=== PATIENT | male | born 1980 | race African-American/Black ===

== ENCOUNTER 2020-05-10 10:41 | Inpatient (IN) ==
[2020-05-10 11:54] LABS: Basophils % 0.2 % (0.0-0.8); Eosinophils % 0.1 % (0.00-10.9); Hematocrit 47.1 VOL% (42.0-52.0); Hemoglobin 15.9 GM/DL (14.0-18.0); Immature Granulocytes % 0.5 %; Immature Granulocytes Absolute 0.07 #; Lymphocytes # 1.4 10*3/uL (1.4-4.0); Lymphocytes % 10.3 % (21.2-54.2); Mean Corpuscular HGB Conc 33.8 GM/DL (32-36); Mean Corpuscular Volume 82.8 FL (87-102); Mean Platelet Volume 11.1 FL (9.6-12.0); Monocytes % 9.3 % (1.7-12.7); Neutrophils % 79.6 % (38.7-73.9); Platelet Count 211 T/CUMM (130-400); Red Blood Count 5.69 MC/CUMM (3.8-5.5); Red Cell Distribution Width 12.3 % (9.3-17.3); White Blood Count 13.7 T/CUMM (4-12)
[2020-05-10 12:14] LABS: Anisocytosis Slight; Atypical Lymphocytes Few; Band Neutrophils 1 % (0-10); Lymphocytes 10 % (20-55); Nucleated Red Blood Cells 1 (0-5); Platelet Estimate Normal; Segmented Neutrophils 78 % (50-85); Total Cells Counted 100
[2020-05-10 12:26] LABS: Calcium 9.4 MG/DL (8.5-10.1); Osmolality,Calculated 264.5 MOS/KG (273-304); Thyroid Stimulating Hormone 1.02 uIU/ml (0.358-3.74)
[2020-05-10] MEDS ORDERED: HEPARIN 5,000 UNIT/1 ML VIAL IV ONE ×2 (17:10→18:00)
[2020-05-10] MEDS ORDERED: ONDANSETRON 4 MG/2 ML VIAL IV STA (18:04)
[2020-05-10] MEDS ORDERED: MORPHINE 4 MG/1 ML VIAL IV STA (18:04)
[2020-05-10] MEDS ORDERED: VANCOMYCIN INJ 1,000 MG in SODIUM CHLORIDE 0.9% 250 ML IV ONE (20:21)
[2020-05-10] MEDS ORDERED: VANCOMYCIN 500 MG VIAL ONE (20:25)
[2020-05-10] MEDS ORDERED: MEPERIDINE 25 MG/1 ML VIAL IV PRN (20:40)
[2020-05-10] MEDS ORDERED: diphenhydrAMINE 50 MG/1 ML VIAL IV PRN (20:40)
[2020-05-10] MEDS ORDERED: ONDANSETRON 4 MG/2 ML VIAL IV PRN ×2 (20:40→22:01)
[2020-05-10] MEDS ORDERED: PROMETHAZINE INJ 25 MG in SODIUM CHLORIDE 0.9% 50 ML IV PRN (20:40)
[2020-05-10] MEDS ORDERED: BISACODYL 5 MG TABLET PO PRN (22:01)
[2020-05-10] MEDS ORDERED: KETOROLAC 10 MG TABLET PO PRN (22:01)
[2020-05-10] MEDS ORDERED: MIDAZOLAM 2 MG/2 ML VIAL ONE (22:26)
[2020-05-10] MEDS ORDERED: ONDANSETRON 4 MG/2 ML VIAL ONE (22:26)
[2020-05-10] MEDS ORDERED: fentaNYL 100 MCG/2 ML VIAL ONE (22:26)
[2020-05-10] MEDS ORDERED: DEXAMETHASONE 4 MG/1 ML VIAL ONE (22:26)
[2020-05-10] MEDS ORDERED: LIDOCAINE 2% 5 ML VIAL ONE (22:26)
[2020-05-10] MEDS ORDERED: propofoL 200 MG/20 ML VIAL IV ONE (22:26)
[2020-05-10] MEDS ORDERED: LACTATED RINGERS 2,000 ML IV ONE (22:27)
[2020-05-10] MEDS ORDERED: GLYCOPYRROLATE 0.4 MG/2 ML VIAL ONE (22:27)
[2020-05-10] MEDS ORDERED: SEVOFLURANE 1 UNIT/15 MINUTE INH ONE (22:27)
[2020-05-10] MEDS ORDERED: ROCURONIUM 100 MG/10 ML VIAL IV ONE (22:27)
[2020-05-10] MEDS ORDERED: NEOSTIGMINE 10 MG/10 ML VIAL ONE (22:27)
[2020-05-10] MEDS ORDERED: ESMOLOL 100 MG/10 ML VIAL IV ONE (22:27)
[2020-05-10] MEDS ORDERED: INFLUENZA VIRUS VACCINE 0.5 ML SYRINGE IM ONE (23:00)
[2020-05-11] MEDS: LACTATED RINGERS 1,000 ML IV SCH ×3 (03:04→13:43)
[2020-05-11 05:38] LABS: Basophils % 0.1 % (0.0-0.8); Hematocrit 41.6 VOL% (42.0-52.0); Immature Granulocytes % 0.5 %; Immature Granulocytes Absolute 0.08 #; Lymphocytes # 0.5 10*3/uL (1.4-4.0); Lymphocytes % 3.2 % (21.2-54.2); Mean Corpuscular HGB Conc 32.7 GM/DL (32-36); Mean Platelet Volume 11.8 FL (9.6-12.0); Monocytes % 5.8 % (1.7-12.7); Neutrophils % 90.4 % (38.7-73.9); Platelet Count 193 T/CUMM (130-400); Red Blood Count 4.95 MC/CUMM (3.8-5.5); Red Cell Distribution Width 12.4 % (9.3-17.3)
[2020-05-11 06:01] LABS: Calcium 9.1 MG/DL (8.5-10.1); Osmolality,Calculated 271.1 MOS/KG (273-304)
[2020-05-11 06:03] LABS: Hemoglobin 13.6 GM/DL (14.0-18.0)
[2020-05-11 06:08] LABS: Hypochromasia 1+; Lymphocytes 8 % (20-55); Microcytosis Slight; Ovalocytes Slight; Platelet Estimate Adequate; Segmented Neutrophils 89 % (50-85); Total Cells Counted 100
[2020-05-11] MEDS: CLOPIDOGREL 75 MG TABLET PO SCH (08:51)
[2020-05-11] MEDS: PANTOPRAZOLE 40 MG TABLET PO SCH (08:51)
[2020-05-11] MEDS: ASPIRIN EC 81 MG TABLET PO SCH (08:51)
[2020-05-11] MEDS ORDERED: ENOXAPARIN 40 MG/0.4 ML SYRINGE SUBCUT SCH (16:00)
[2020-05-12] MEDS: CLOPIDOGREL 75 MG TABLET PO SCH (09:31)
[2020-05-12] MEDS: PANTOPRAZOLE 40 MG TABLET PO SCH (09:31)
[2020-05-12] MEDS: ASPIRIN EC 81 MG TABLET PO SCH (09:31)
[2020-05-12] MEDS: LACTATED RINGERS 1,000 ML IV SCH ×2 (09:31→09:43)
[2020-05-12] MEDS: HEPARIN DRIP 25,000 UNITS/500 ML PREMIX IV SCH (14:29)
[2020-05-13] MEDS: HEPARIN DRIP 25,000 UNITS/500 ML PREMIX IV SCH (07:27)
[2020-05-13] MEDS: PANTOPRAZOLE 40 MG TABLET PO SCH (08:38)
[2020-05-13] MEDS: CLOPIDOGREL 75 MG TABLET PO SCH (08:39)
[2020-05-13] MEDS: ASPIRIN EC 81 MG TABLET PO SCH (08:40)
[2020-05-13 14:48] LABS: Barbiturates Screen,Urine Negative (Negative); Benzodiazepines Screen,Urine Negative (Negative); Cannabinoid Screen,Urine Negative (Negative); Opiate Screen,Urine Positive (Negative); Phencyclidine Screen,Urine Negative (Negative)
[2020-05-13] MEDS: LACTATED RINGERS 1,000 ML IV SCH ×3 (16:26→16:27)
[2020-05-14] MEDS: HEPARIN DRIP 25,000 UNITS/500 ML PREMIX IV SCH ×2 (00:17→16:00)
[2020-05-14] MEDS: LACTATED RINGERS 1,000 ML IV SCH ×3 (06:28→17:35)
[2020-05-14] MEDS: ASPIRIN EC 81 MG TABLET PO SCH (09:14)
[2020-05-14] MEDS: PANTOPRAZOLE 40 MG TABLET PO SCH (09:14)
[2020-05-14] MEDS: CLOPIDOGREL 75 MG TABLET PO SCH (09:14)
[2020-05-14] MEDS: WARFARIN 5 MG TABLET PO SCH (17:34)
[2020-05-15] MEDS: LACTATED RINGERS 1,000 ML IV SCH ×3 (03:14→18:12)
[2020-05-15] MEDS ORDERED: LIDOCAINE 1%/EPI INJ 20 ML VIAL MISC INJ ONE (08:38)
[2020-05-15] MEDS: ASPIRIN EC 81 MG TABLET PO SCH (10:13)
[2020-05-15] MEDS: PANTOPRAZOLE 40 MG TABLET PO SCH (10:13)
[2020-05-15] MEDS: CLOPIDOGREL 75 MG TABLET PO SCH (10:13)
[2020-05-15] MEDS: HEPARIN DRIP 25,000 UNITS/500 ML PREMIX IV SCH (11:39)
[2020-05-15] MEDS: WARFARIN 5 MG TABLET PO SCH (18:11)
[2020-05-15 19:51] LABS: Phospholipid Ab IgM, S < 9.4 MPL
[2020-05-16] MEDS: HEPARIN DRIP 25,000 UNITS/500 ML PREMIX IV SCH ×2 (02:06→13:34)
[2020-05-16] MEDS: LACTATED RINGERS 1,000 ML IV SCH ×2 (02:16→11:36)
[2020-05-16 05:35] LABS: Basophils % 0.4 % (0.0-0.8); Eosinophils # 0.1 10*3/uL (0.0-0.87); Eosinophils % 0.8 % (0.00-10.9); Hematocrit 29.6 VOL% (42.0-52.0); Immature Granulocytes % 0.5 %; Immature Granulocytes Absolute 0.06 #; Lymphocytes % 17.8 % (21.2-54.2); Mean Corpuscular HGB Conc 33.8 GM/DL (32-36); Mean Corpuscular Volume 82.2 FL (87-102); Mean Platelet Volume 10.6 FL (9.6-12.0); Monocytes % 10.5 % (1.7-12.7); Platelet Count 262 T/CUMM (130-400); Red Cell Distribution Width 12.2 % (9.3-17.3); White Blood Count 11.2 T/CUMM (4-12)
[2020-05-16 05:46] LABS: INR 1.1; PT Patient Result 12.2 SECS (9.8-11.9)
[2020-05-16 06:24] LABS: Hypochromasia 1+; Microcytosis Slight; Platelet Estimate Normal
[2020-05-16] MEDS: ASPIRIN EC 81 MG TABLET PO SCH (09:47)
[2020-05-16] MEDS: CLOPIDOGREL 75 MG TABLET PO SCH (09:47)
[2020-05-16] MEDS: PANTOPRAZOLE 40 MG TABLET PO SCH (09:47)
[2020-05-16] MEDS: SODIUM HYPOCHLORITE 0.25% IRRIG 473 ML BOTTLE TOP SCH (11:32)
[2020-05-16] MEDS ORDERED: WARFARIN 7.5 MG TABLET PO SCH (18:00)
[2020-05-17] MEDS: HEPARIN DRIP 25,000 UNITS/500 ML PREMIX IV SCH ×2 (04:54→18:33)
[2020-05-17 05:21] LABS: Basophils # 0.1 10*3/uL (0.0-0.2); Basophils % 0.5 % (0.0-0.8); Eosinophils # 0.1 10*3/uL (0.0-0.87); Eosinophils % 0.9 % (0.00-10.9); Hematocrit 30.1 VOL% (42.0-52.0); Hemoglobin 10.2 GM/DL (14.0-18.0); Immature Granulocytes % 1.1 %; Immature Granulocytes Absolute 0.12 #; Lymphocytes # 2.2 10*3/uL (1.4-4.0); Lymphocytes % 20.1 % (21.2-54.2); Mean Corpuscular HGB Conc 33.9 GM/DL (32-36); Mean Corpuscular Volume 82.2 FL (87-102); Mean Platelet Volume 10.3 FL (9.6-12.0); Monocytes % 11.2 % (1.7-12.7); Neutrophils % 66.2 % (38.7-73.9); Platelet Count 268 T/CUMM (130-400); Red Blood Count 3.66 MC/CUMM (3.8-5.5); Red Cell Distribution Width 12.4 % (9.3-17.3); White Blood Count 10.7 T/CUMM (4-12)
[2020-05-17 05:25] LABS: INR 1.2; PT Patient Result 12.4 SECS (9.8-11.9)
[2020-05-17 05:54] LABS: Lymphocytes 18 % (20-55); Platelet Estimate Normal; Segmented Neutrophils 73 % (50-85); Total Cells Counted 100
[2020-05-17] MEDS: LACTATED RINGERS 1,000 ML IV SCH ×3 (08:31→17:50)
[2020-05-17] MEDS: CLOPIDOGREL 75 MG TABLET PO SCH (11:15)
[2020-05-17] MEDS: PANTOPRAZOLE 40 MG TABLET PO SCH (11:15)
[2020-05-17] MEDS: ASPIRIN EC 81 MG TABLET PO SCH (11:15)
[2020-05-17] MEDS: SODIUM HYPOCHLORITE 0.25% IRRIG 473 ML BOTTLE TOP SCH (11:16)
[2020-05-17] MEDS: HYDROmorphone 2 MG/1 ML VIAL IV PRN ×2 (11:16→18:41)
[2020-05-17] MEDS: WARFARIN 5 MG TABLET PO SCH (18:06)
[2020-05-18] MEDS: LACTATED RINGERS 1,000 ML IV SCH ×3 (01:56→20:30)
[2020-05-18 03:40] LABS: Basophils % 0.3 % (0.0-0.8); Eosinophils # 0.2 10*3/uL (0.0-0.87); Eosinophils % 1.6 % (0.00-10.9); Hematocrit 28.1 VOL% (42.0-52.0); Hemoglobin 9.4 GM/DL (14.0-18.0); Immature Granulocytes % 1.3 %; Immature Granulocytes Absolute 0.12 #; Lymphocytes % 21.8 % (21.2-54.2); Mean Corpuscular HGB Conc 33.5 GM/DL (32-36); Mean Corpuscular Volume 82.6 FL (87-102); Mean Platelet Volume 10.5 FL (9.6-12.0); Monocytes % 10.8 % (1.7-12.7); Neutrophils % 64.2 % (38.7-73.9); Platelet Count 271 T/CUMM (130-400); Red Cell Distribution Width 12.5 % (9.3-17.3); White Blood Count 9.2 T/CUMM (4-12)
[2020-05-18 04:10] LABS: INR 1.2; PT Patient Result 13.2 SECS (9.8-11.9)
[2020-05-18] MEDS: SODIUM HYPOCHLORITE 0.25% IRRIG 473 ML BOTTLE TOP SCH (09:15)
[2020-05-18] MEDS: CLOPIDOGREL 75 MG TABLET PO SCH (09:15)
[2020-05-18] MEDS: PANTOPRAZOLE 40 MG TABLET PO SCH (09:15)
[2020-05-18] MEDS: ASPIRIN EC 81 MG TABLET PO SCH (09:15)
[2020-05-18] MEDS: HEPARIN DRIP 25,000 UNITS/500 ML PREMIX IV SCH (11:30)
[2020-05-18] MEDS: WARFARIN 5 MG TABLET PO SCH (17:11)
[2020-05-19] MEDS: LACTATED RINGERS 1,000 ML IV SCH ×2 (03:50→11:33)
[2020-05-19] MEDS: HEPARIN DRIP 25,000 UNITS/500 ML PREMIX IV SCH (03:53)
[2020-05-19 05:16] LABS: Basophils % 0.2 % (0.0-0.8); Eosinophils % 1.5 % (0.00-10.9); Hematocrit 28.1 VOL% (42.0-52.0); Hemoglobin 9.3 GM/DL (14.0-18.0); Immature Granulocytes % 0.8 %; Lymphocytes % 19.7 % (21.2-54.2); Mean Corpuscular HGB Conc 33.1 GM/DL (32-36); Mean Corpuscular Volume 83.4 FL (87-102); Monocytes % 9.3 % (1.7-12.7); Neutrophils % 68.5 % (38.7-73.9); Platelet Count 298 T/CUMM (130-400); Red Blood Count 3.37 MC/CUMM (3.8-5.5); Red Cell Distribution Width 12.5 % (9.3-17.3); White Blood Count 8.7 T/CUMM (4-12)
[2020-05-19 05:17] LABS: Eosinophils # 0.1 10*3/uL (0.0-0.87); Immature Granulocytes Absolute 0.07 #; Lymphocytes # 1.7 10*3/uL (1.4-4.0)
[2020-05-19 05:29] LABS: PT Patient Result 20.6 SECS (9.8-11.9)
[2020-05-19 05:42] LABS: Lymphocytes 22 % (20-55); Nucleated Red Blood Cells 1 (0-5); Platelet Estimate Normal; Segmented Neutrophils 74 % (50-85); Total Cells Counted 100
[2020-05-19 05:43] LABS: Hypochromasia Slight; Microcytosis Slight
[2020-05-19 05:49] LABS: Calcium 8.8 MG/DL (8.5-10.1); Osmolality,Calculated 272.8 MOS/KG (273-304)
[2020-05-19 10:26] LABS: Homocysteine 28.1 nmol/mL (6.5-13.7)
[2020-05-19] MEDS: SODIUM HYPOCHLORITE 0.25% IRRIG 473 ML BOTTLE TOP SCH (10:36)
[2020-05-19] MEDS: ASPIRIN EC 81 MG TABLET PO SCH (10:36)
[2020-05-19] MEDS: CLOPIDOGREL 75 MG TABLET PO SCH (10:37)
[2020-05-19] MEDS: PANTOPRAZOLE 40 MG TABLET PO SCH (10:37)
[2020-05-19] MEDS: HYDROmorphone 2 MG/1 ML VIAL IV PRN (14:15)
[2020-05-19] MEDS: WARFARIN 5 MG TABLET PO SCH (18:05)
[2020-05-20 06:04] LABS: Basophils % 0.3 % (0.0-0.8); Eosinophils # 0.2 10*3/uL (0.0-0.87); Hematocrit 29.8 VOL% (42.0-52.0); Hemoglobin 9.9 GM/DL (14.0-18.0); Immature Granulocytes % 0.7 %; Immature Granulocytes Absolute 0.06 #; Lymphocytes # 1.6 10*3/uL (1.4-4.0); Lymphocytes % 18.8 % (21.2-54.2); Mean Corpuscular HGB Conc 33.2 GM/DL (32-36); Mean Corpuscular Volume 83.2 FL (87-102); Monocytes % 8.1 % (1.7-12.7); Neutrophils % 70.1 % (38.7-73.9); Platelet Count 338 T/CUMM (130-400); Red Blood Count 3.58 MC/CUMM (3.8-5.5); Red Cell Distribution Width 12.7 % (9.3-17.3); White Blood Count 8.6 T/CUMM (4-12)
[2020-05-20 06:11] LABS: INR 2.6; PT Patient Result 26.7 SECS (9.8-11.9)
[2020-05-20 06:20] LABS: Calcium 9.2 MG/DL (8.5-10.1); Osmolality,Calculated 272.8 MOS/KG (273-304)
[2020-05-20 06:28] LABS: Hypochromasia 1+; Microcytosis 1+; Ovalocytes Slight; Platelet Estimate Adequate
[2020-05-20] MEDS: PANTOPRAZOLE 40 MG TABLET PO SCH (10:23)
[2020-05-20] MEDS: ASPIRIN EC 81 MG TABLET PO SCH (10:24)
[2020-05-20] MEDS: SODIUM HYPOCHLORITE 0.25% IRRIG 473 ML BOTTLE TOP SCH (10:24)
[2020-05-20] MEDS: CLOPIDOGREL 75 MG TABLET PO SCH (10:24)
[2020-05-20] MEDS: WARFARIN 5 MG TABLET PO SCH (20:49)
[2020-05-21] MEDS: PANTOPRAZOLE 40 MG TABLET PO SCH (08:32)
[2020-05-21] MEDS: ASPIRIN EC 81 MG TABLET PO SCH (08:33)
[2020-05-21] MEDS: CLOPIDOGREL 75 MG TABLET PO SCH (08:35)
[2020-05-21] MEDS: SODIUM HYPOCHLORITE 0.25% IRRIG 473 ML BOTTLE TOP SCH (10:35)
[2020-05-21 11:31] VITALS: BP 110/69
== END 2020-05-21 16:05 | disposition home health service (06) | DRG 271 ==
LOC: N.EDINP 10:41 → N.ED 10:41 → N.3E 21:00
PROVIDERS: ADMIT Surgery; ATTEND Surgery

== ENCOUNTER 2020-05-27 15:35 | Inpatient (IN) ==
[2020-05-27 17:39] LABS: Basophils % 0.5 % (0.0-0.8); Eosinophils # 0.1 10*3/uL (0.0-0.87); Eosinophils % 1.3 % (0.00-10.9); Hematocrit 34.1 VOL% (42.0-52.0); Immature Granulocytes % 0.5 %; Immature Granulocytes Absolute 0.04 #; Lymphocytes # 2.1 10*3/uL (1.4-4.0); Lymphocytes % 26.5 % (21.2-54.2); Mean Corpuscular HGB Conc 32.3 GM/DL (32-36); Mean Corpuscular Volume 86.1 FL (87-102); Mean Platelet Volume 9.6 FL (9.6-12.0); Monocytes % 5.5 % (1.7-12.7); Neutrophils % 65.7 % (38.7-73.9); Platelet Count 450 T/CUMM (130-400); Red Blood Count 3.96 MC/CUMM (3.8-5.5); Red Cell Distribution Width 13.7 % (9.3-17.3); White Blood Count 7.9 T/CUMM (4-12)
[2020-05-27 17:53] LABS: INR 2.9
[2020-05-27 18:08] LABS: Alanine Aminotransferase 110 U/L (16-61); Albumin 2.8 G/DL (3.4-5.0); Alkaline Phosphatase 136 U/L (45-117); Aspartate Amino Transferase 35 U/L (0-37); Bilirubin,Total < 0.39 MG/DL (0.2-1.0); Blood Urea Nitrogen 8 MG/DL (7-18); Calcium 8.7 MG/DL (8.5-10.1); Estimated Glom Filtration Rate 127 ML/MIN; Glucose 135 MG/DL (74-106); Osmolality,Calculated 278.4 MOS/KG (273-304); Total Protein 8.2 G/DL (6.4-8.3)
[2020-05-27 18:23] LABS: PT Patient Result 29.9 SECS (9.8-11.9)
[2020-05-27 18:45] LABS: Anisocytosis 1+; Eosinophils 2 % (0-10); Lymphocytes 30 % (20-55); Platelet Estimate Adequate; Polychromasia Slight; Reactive Lymphocytes Few; Segmented Neutrophils 67 % (50-85); Total Cells Counted 100
[2020-05-28] MEDS: CEFEPIME 1,000 MG in SODIUM CHLORIDE 0.9% 100 ML IV SCH ×4 (02:02→20:58)
[2020-05-28] MEDS ORDERED: VANCOMYCIN INJ 1,000 MG in SODIUM CHLORIDE 0.9% 250 ML IV ONE (07:00)
[2020-05-28] MEDS ORDERED: BUPIVACAINE 0.5% 50 ML VIAL ONE (08:06)
[2020-05-28] MEDS ORDERED: propofoL 200 MG/20 ML VIAL IV ONE (08:34)
[2020-05-28] MEDS ORDERED: LIDOCAINE 2% 5 ML VIAL ONE (08:34)
[2020-05-28] MEDS ORDERED: fentaNYL 100 MCG/2 ML VIAL ONE (08:35)
[2020-05-28] MEDS ORDERED: MIDAZOLAM 2 MG/2 ML VIAL ONE (08:45)
[2020-05-28] MEDS ORDERED: DEXAMETHASONE 4 MG/1 ML VIAL ONE (09:00)
[2020-05-28] MEDS ORDERED: ONDANSETRON 4 MG/2 ML VIAL ONE (09:00)
[2020-05-28] MEDS ORDERED: KETOROLAC 30 MG/1 ML VIAL ONE (09:01)
[2020-05-28] MEDS ORDERED: DEXTROSE 50% 25 GM/50 ML VIAL IV PRN (09:16)
[2020-05-28] MEDS ORDERED: GLUCAGON 1 MG VIAL IM PRN (09:16)
[2020-05-28] MEDS ORDERED: ONDANSETRON 4 MG/2 ML VIAL IV PRN (09:16)
[2020-05-28] MEDS ORDERED: BISACODYL 5 MG TABLET PO PRN (09:16)
[2020-05-28] MEDS ORDERED: SEVOFLURANE 1 UNIT/15 MINUTE INH ONE (09:55)
[2020-05-28] MEDS: ASPIRIN EC 81 MG TABLET PO SCH (11:01)
[2020-05-28] MEDS: LACTATED RINGERS 1,000 ML IV SCH (11:01)
[2020-05-28] MEDS: WARFARIN 5 MG TABLET PO SCH (17:42)
[2020-05-29] MEDS: CEFEPIME 1,000 MG in SODIUM CHLORIDE 0.9% 100 ML IV SCH ×4 (01:48→20:43)
[2020-05-29] MEDS: LACTATED RINGERS 1,000 ML IV SCH (01:55)
[2020-05-29 09:17] LABS: INR 2.4; PT Patient Result 24.8 SECS (9.8-11.9)
[2020-05-29] MEDS: ASPIRIN EC 81 MG TABLET PO SCH (09:47)
[2020-05-29] MEDS: CLOPIDOGREL 75 MG TABLET PO SCH (09:47)
[2020-05-29] MEDS: FOLIC ACID 1 MG TABLET PO SCH (09:47)
[2020-05-29] MEDS ORDERED: TUBERCULIN SKIN TEST 0.1 ML SYRINGE INTRADERM ONE (10:30)
[2020-05-29] MEDS ORDERED: POTASSIUM CHLORIDE 20 MEQ/15 ML UDCUP PO ONE (12:30)
[2020-05-29] MEDS: WARFARIN 5 MG TABLET PO SCH (18:27)
[2020-05-30] MEDS: CEFEPIME 1,000 MG in SODIUM CHLORIDE 0.9% 100 ML IV SCH ×4 (03:13→21:25)
[2020-05-30 07:18] LABS: INR 2.1
[2020-05-30] MEDS: ASPIRIN EC 81 MG TABLET PO SCH (08:51)
[2020-05-30] MEDS: CLOPIDOGREL 75 MG TABLET PO SCH (08:51)
[2020-05-30] MEDS: FOLIC ACID 1 MG TABLET PO SCH (08:51)
[2020-05-30] MEDS: WARFARIN 5 MG TABLET PO SCH (18:11)
[2020-05-31] MEDS: CEFEPIME 1,000 MG in SODIUM CHLORIDE 0.9% 100 ML IV SCH ×4 (03:14→19:53)
[2020-05-31] MEDS: CLOPIDOGREL 75 MG TABLET PO SCH (08:53)
[2020-05-31] MEDS: FOLIC ACID 1 MG TABLET PO SCH (08:53)
[2020-05-31] MEDS: ASPIRIN EC 81 MG TABLET PO SCH (08:53)
[2020-05-31] MEDS: WARFARIN 5 MG TABLET PO SCH (17:45)
[2020-06-01] MEDS: CEFEPIME 1,000 MG in SODIUM CHLORIDE 0.9% 100 ML IV SCH ×4 (02:01→20:18)
[2020-06-01 06:50] LABS: INR 2.2
[2020-06-01 06:51] LABS: PT Patient Result 22.3 SECS (9.8-11.9)
[2020-06-01] MEDS: CLOPIDOGREL 75 MG TABLET PO SCH (09:52)
[2020-06-01] MEDS: ASPIRIN EC 81 MG TABLET PO SCH (09:52)
[2020-06-01] MEDS: FOLIC ACID 1 MG TABLET PO SCH (09:52)
[2020-06-01] MEDS: WARFARIN 5 MG TABLET PO SCH (17:47)
[2020-06-02] MEDS: CEFEPIME 1,000 MG in SODIUM CHLORIDE 0.9% 100 ML IV SCH ×2 (02:40→09:14)
[2020-06-02] MEDS: FOLIC ACID 1 MG TABLET PO SCH (09:13)
[2020-06-02] MEDS: CLOPIDOGREL 75 MG TABLET PO SCH (09:14)
[2020-06-02] MEDS: ASPIRIN EC 81 MG TABLET PO SCH (09:14)
[2020-06-02 11:39] VITALS: BP 110/58
== END 2020-06-02 13:30 | disposition swing bed (61) | DRG 908 ==
LOC: N.3E 15:56
PROVIDERS: ADMIT Surgery; ATTEND Surgery